=== PATIENT | male | born 1980 | race African-American/Black ===

== ENCOUNTER 2017-03-05 10:16 | Emergency (ER) | payer SELFPAY ==
[~2017-03-05] VITALS: Ht 177.8 cm; Wt 106.6 kg
[2017-03-05 10:51] VITALS: BP 147/98
[2017-03-05] MEDS ORDERED: KETOROLAC TROMETH 60MG/2ML VIAL IM ONE (11:30)
[2017-03-05] MEDS ORDERED: cefTRIAXone SOD 1,000 MG VL IM ONE (11:30)
== END 2017-03-05 11:50 | disposition home or self-care (01) ==
LOC: ER 10:16
DX: S83.92XA Sprain of unspecified site of left knee, initial encounter (principal); S80.812A Abrasion, left lower leg, initial encounter; V19.9XXA Pedal cyclist (driver) (passenger) injured in unspecified traffic accident, initial encounter; Y93.89 Activity, other specified; Y92.89 Other specified places as the place of occurrence of the external cause; Y99.8 Other external cause status
CPT/HCPCS: 73562; 96372; 99284; J0696; J1885